=== PATIENT | female | born 1975 | race Hispanic/Latino ===

== ENCOUNTER 2017-05-03 10:52 | Outpatient (CLI) | payer MEDICAID ==
--- NOTE | 2017-05-03 12:05 | XRay Report ---
XRAY LEFT KNEE FOUR VIEWS: 05/03/17 10:52:00 CLINICAL: Left knee pain. FINDINGS: Moderate medial joint space narrowing with small medial osteophytes. The lateral joint space is normal. Mild patellofemoral joint arthritis. No fracture or dislocation. No joint effusion. Normal soft tissues. 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
== END 2017-05-03 10:53 | disposition home or self-care (01) ==
LOC: SPVIMAG 10:52
PROVIDERS: ATTEND Orthopaedic Surgery Sports Medicine
DX: M17.12 Unilateral primary osteoarthritis, left knee (principal)